=== PATIENT | male | born 1975 | race American Indian/Alaskan Native ===

== ENCOUNTER 2021-07-04 21:59 | Emergency (ER) | payer OTHER ==
--- NOTE | 2021-07-04 23:34 | Emergency Department Report ---
- General Chief Complaint: Chest Pain Stated Complaint: CHEST PAINS Time Seen by Provider: 07/04/21 22:28 Source: patient Mode of arrival: Ambulatory Limitations: No Limitations - History of Present Illness Initial Comments: 46-year-old male presents emergency department complaining of 1 hour history of chest pain associated with cough with yellowish-greenish mucus production and burning sensation to the chest. Nasal congestion going symptoms off and on no hemoptysis no hematemesis hematochezia. No nausea, no vomiting no abdominal pain no fever, chills, sweats. No diarrhea constipation. No exertional dyspnea no palpitation no dizziness no numbness to the arms. For significant flareup of asthma MD Complaint: cough, rhinorrhea, nasal congestion -: Gradual Severity: mild Consistency: constant Improves With: NSAID Worsens With: nothing Associated Symptoms: rhinorrhea, nasal congestion, cough. denies: fever, chills, myalgias, diaphoresis, headache, stiff neck, diarrhea, dysuria, right sweats, weight loss, hoarseness - Related Data Previous Rx's Medication Instructions Recorded Last Taken Type Albuterol Mdi (or & Nicu Only) 1 puff IH Q4-6H PRN #1 inha 07/04/21 Unknown Rx [ProAir HFA Inhaler] Benzonatate [Tessalon Perles] 100 mg PO Q8HR #20 capsule 07/04/21 Unknown Rx predniSONE [Deltasone] 20 mg PO QDAY #5 tab 07/04/21 Unknown Rx Allergies Allergy/AdvReac Type Severity Reaction Status Date / Time No Known Allergies Allergy Unverified 07/04/21 22:24 ED Review of Systems ROS: Stated complaint: CHEST PAINS Other details as noted in HPI Comment: All other systems reviewed and negative ED Past Medical Hx - Past Medical History Previous Medical History?: No - Surgical History Past Surgical History?: No - Medications Home Medications: Home Medications Medication Instructions Recorded Confirmed Last Taken Type Albuterol Mdi (or & Nicu Only) 1 puff IH Q4-6H PRN #1 inha 07/04/21 Unknown Rx [ProAir HFA Inhaler] Benzonatate [Tessalon Perles] 100 mg PO Q8HR #20 capsule 07/04/21 Unknown Rx predniSONE [Deltasone] 20 mg PO QDAY #5 tab 07/04/21 Unknown Rx ED Physical Exam - General Limitations: No Limitations General appearance: alert, in no apparent distress - Head Head exam: Present: atraumatic, normocephalic - Eye Eye exam: Present: normal appearance, PERRL, EOMI Pupils: Present: normal accommodation - ENT ENT exam: Present: normal exam, normal orophraynx, mucous membranes moist, TM's normal bilaterally - Neck Neck exam: Present: normal inspection - Respiratory Respiratory exam: Present: normal lung sounds bilaterally, wheezes, rhonchi. Absent: respiratory distress, chest wall tenderness, accessory muscle use - Cardiovascular Cardiovascular Exam: Present: regular rate, normal rhythm. Absent: systolic murmur, diastolic murmur, rubs, gallop - GI/Abdominal GI/Abdominal exam: Present: soft, normal bowel sounds - Rectal Rectal exam: Present: deferred - Extremities Exam Extremities exam: Present: normal inspection - Back Exam Back exam: Present: normal inspection - Neurological Exam Neurological exam: Present: alert, oriented X3 - Psychiatric Psychiatric exam: Present: normal affect, normal mood - Skin Skin exam: Present: warm, dry, intact, normal color. Absent: rash ED Course Vital Signs 07/04/21 07/05/21 22:22 00:25 Temperature 98.6 F Pulse Rate 99 H 89 Respiratory 16 15 Rate Blood Pressure 139/84 Blood Pressure 148/79 [Right] O2 Sat by Pulse 97 95 Oximetry ED Medical Decision Making - EKG Data EKG shows normal: sinus rhythm Rate: normal - EKG Data Interpretation: nonspecific ST-T wave cornelius 07/21/21 00:08 2211 - Medical Decision Making This patient presents with acute cough, most consistent with nonemergent cause for cough,. Differential diagnosis includes bronchitis, Covid, asthma, hyperreactive airway disease. Presentation not consistent with acute bacterial pneumonia, influenza, asthma, transient airway hyperresponsiveness. Presentation not consistent with chronic causes of cough (including GERD, asthma, postnasal discharge, medication side effect, CHF, lung cancer or mass). Plan: , supportive care, reassess Critical care attestation.: If time is entered above; I have spent that time in minutes in the direct care of this critically ill patient, excluding procedure time. ED Disposition Clinical Impression: Asthma, Nonspecific chest pain Disposition: HOME / SELF CARE / HOMELESS Is pt being admited?: No Does the pt Need Aspirin: No Condition: Stable Instructions: Nonspecific Chest Pain, Adult, Asthma (ED) Prescriptions: predniSONE [Deltasone] 20 mg PO QDAY #5 tab Albuterol Mdi (or & Nicu Only) [ProAir HFA Inhaler] 1 puff IH Q4-6H PRN #1 inha PRN Reason: Cough Benzonatate [Tessalon Perles] 100 mg PO Q8HR #20 capsule Referrals: [facility] [Provider Group] - 3-5 Days PRIMARY CARE,MD [Primary Care Provider] - 3-5 Days
[2021-07-05 00:26] VITALS: BP 148/79
--- NOTE | 2021-07-06 09:42 | Electrocardiograph Report ---
[facility] Test Date: 2021-07-04 Test Time: 22:11:53 Pat Name: RACHEL PARSONS Department: Room: Gender: M Laboratory Technician: : 1975 Requested By: IZABEL DICKSON Order Number: [id number] Reading MD: Boom Montiel Measurements Intervals [place] Rate: 93 P: 60 MO: 147 QRS: 74 QRSD: 79 T: 58 QT: 333 QTc: 415 Interpretive Statements Sinus rhythm ST elev, probable normal early repol pattern No previous ECG available for comparison Electronically Signed On 07-06-2021 9:41:38 EDT by Boom Montiel
== END 2021-07-05 00:22 | disposition home or self-care (01) ==
LOC: ED 21:59
DX: R05.9 Cough, unspecified (principal); R09.81 Nasal congestion; R07.89 Other chest pain; J34.89 Other specified disorders of nose and nasal sinuses
CPT/HCPCS: 93005; 99282